=== PATIENT | male | born 1960 | race Two or more races ===

== ENCOUNTER → 2023-12-30 | Outpatient (CLI) | payer OTHER ==
[2023-12-31 08:15] LABS: RUBELLA AB IGG-REFLAB 3.93 index (Immune >0.99); RUBEOLA (MEASLES) IGG >300.0 AU/mL (Immune >16.4); VARICELLA ZOSTER IGG AB TITER 1360 index (Immune >165)
== END | disposition home or self-care (01) ==
LOC: LABMN 15:27
PROVIDERS: ATTEND Internal Medicine
DX: Z00.00 Encounter for general adult medical examination without abnormal findings (principal)
CPT/HCPCS: 86706; 86735; 86762; 86765; 86787

== ENCOUNTER → 2024-03-29 | Outpatient (CLI) | payer OTHER ==
[2024-03-29 07:37] LABS: EOSINOPHILS % (AUTO) 14.3 % (1.0-6.0); HEMATOCRIT 44.4 % (41-53); HEMOGLOBIN 14.9 g/dL (13.5-17.5); LYMPHOCYTES # (AUTO) 1.8 K/uL (1.0-4.8); LYMPHOCYTES % (AUTO) 28.3 % (22.0-44.0); MEAN CORPUSCULAR HEMOGLOBIN 32.3 pg (26.0-34.0); MEAN CORPUSCULAR HGB CONC 33.6 G/dL (31.0-37.0); MEAN CORPUSCULAR VOLUME 96 fL (80-100); MONOCYTES # (AUTO) 0.5 K/uL (0.1-1.0); MONOCYTES % (AUTO) 7.6 % (2.0-9.0); NEUTROPHILS # (AUTO) 3.1 K/uL (1.8-7.7); NEUTROPHILS % (AUTO) 48.8 % (40.0-70.0); PLATELET COUNT (AUTO) 223 K/uL (150-450); RED BLOOD CELL COUNT(AUTO) 4.62 MIL/uL (4.50-5.90); RED CELL DISTRIBUTION WIDTH 12.7 % (11.5-14.5); WHITE BLOOD COUNT (AUTO) 6.4 K/uL (4.5-11.0)
[2024-03-29 07:47] LABS: HEMOGLOBIN A1C 5.9 % (3.8-5.6)
[2024-03-29 08:19] LABS: ALANINE AMINOTRANSFERASE 32 U/L (12-78); ALBUMIN 3.3 g/dL (3.4-5.0); ALKALINE PHOSPHATASE 111 U/L (46-116); ANION GAP 10 mmol/L (8-16); ASPARTATE AMINOTRANSFERASE 23 U/L (15-37); BILIRUBIN,TOTAL 0.3 mg/dL (0.1-1.0); CALCIUM, TOTAL 8.5 mg/dL (8.8-10.5); CARBON DIOXIDE 26 mmol/L (22-29); CHLORIDE 105 mmol/L (98-107); CHOL/HDL RATIO 3.5 (4.2-7.3); CHOLESTEROL 170 mg/dL (131-200); CREATININE 0.84 mg/dL (0.60-1.30); GLOMERULAR FILTR. RATE CALC > 60 mL/min (>60); GLUCOSE,RANDOM 111 mg/dL (70-110); HDL CHOLESTEROL 48 mg/dL (40-60); LDL CHOL (CALC.) 100 mg/dL (0-130); POTASSIUM 3.8 mmol/L (3.5-5.1); SODIUM SERUM 140 mmol/L (136-145); TOTAL PROTEIN, SERUM 7.8 g/dL (6.4-8.2); TRIGLYCERIDES 109 mg/dL (15-150); UREA NITROGEN, BLOOD 16 mg/dL (7-18)
[2024-03-29 09:12] LABS: THYROID STIMULATING HORMONE 2.96 uIU/mL (0.36-3.74)
[2024-03-29 09:20] LABS: PROSTATE SPECIFIC ANTIGEN 0.24 ng/mL (0.00-4.00)
[2024-03-29 09:57] LABS: VITAMIN D,TOTAL (25-0H) 44 ng/mL (30-100)
[2024-03-29 09:58] LABS: VITAMIN B12 LEVEL 970 pg/mL (211-911)
[2024-03-29 11:01] LABS: FOLATE SERUM > 24.0 ng/mL (5.4-)
== END | disposition home or self-care (01) ==
LOC: LABMN 07:13
PROVIDERS: ATTEND Legal Medicine
DX: Z00.00 Encounter for general adult medical examination without abnormal findings (principal)
CPT/HCPCS: 80053; 80061; 82306; 82607; 82746; 83036; 84153; 84443; 85025

== ENCOUNTER 2024-06-29 08:34 | Day surgery (SDC) | payer OTHER ==
[~2024-06-29] VITALS: Ht 170.2 cm; Wt 102.2 kg
[~2024-06-29 08:34] MED LIST: SODIUM CHLORIDE 0.9% 1,000 ML IV ONE; SODIUM CHLORIDE 0.9% 1,000 ML ONE
[2024-06-29] MEDS ORDERED: OXYGEN THERAPY IH SCH (09:45)
[2024-06-29] MEDS ORDERED: LIDOCAINE/PF 2% 5 ML SYRINGE IVP ONE (12:00)
[2024-06-29] MEDS ORDERED: GLYCOPYRROLATE 0.2 MG/ML VIAL IM ONE (12:00)
[2024-06-29] MEDS ORDERED: PROPOFOL 1% 20 ML VIAL IVP ONE (12:00)
== END 2024-06-29 10:50 | disposition home or self-care (01) ==
LOC: SURGERY 08:34
PROVIDERS: ATTEND Specialist
DX: Z12.11 Encounter for screening for malignant neoplasm of colon (principal); K57.30 Diverticulosis of large intestine without perforation or abscess without bleeding; I10 Essential (primary) hypertension; E66.8 Other obesity; Z68.35 Body mass index [BMI] 35.0-35.9, adult; Z79.899 Other long term (current) drug therapy
CPT/HCPCS: 45378; J2704; J3490 ×2; J7030

== ENCOUNTER 2024-07-18 11:53 | Day surgery (SDC) | payer OTHER ==
[~2024-07-18] VITALS: Ht 170.2 cm; Wt 100.0 kg
[~2024-07-18 11:53] MED LIST changes: +AZEL137S8 NASAL; +FLUT16H NASAL; +LOSA-382 PO; -SODIUM CHLORIDE 0.9% 1,000 ML IV ONE; -SODIUM CHLORIDE 0.9% 1,000 ML ONE
[2024-07-18] MEDS ORDERED: LIDOCAINE/PF 2% 5 ML VIAL IM ONE (11:54)
[2024-07-18] MEDS ORDERED: 0.9% SODIUM CHLORIDE 10 ML VIAL IVP ONE (11:54)
[2024-07-18] MEDS ORDERED: EPHEDrine SULFATE 50 MG/ML VIAL IM ONE (11:54)
[2024-07-18] MEDS ORDERED: ROCURONIUM BROMIDE 10 MG/ML 5 ML VIAL IVP ONE (11:54)
[2024-07-18] MEDS ORDERED: ACETAMINOPHEN/ISO-OSM 1000 MG/100 ML BOTTLE IV ONE (11:54)
[2024-07-18] MEDS ORDERED: KETOROLAC TROMETHAMINE 60 MG/2 ML VIAL IM ONE (11:54)
[2024-07-18] MEDS ORDERED: DEXAMETHASONE SOD PHOS 4 MG/ML VIAL IVP ONE (11:54)
[2024-07-18] MEDS ORDERED: SUGAMMADEX SODIUM 200 MG/2 ML VIAL IVP ONE (11:54)
[2024-07-18] MEDS ORDERED: PROPOFOL 1% 20 ML VIAL IVP ONE (11:54)
[2024-07-18] MEDS ORDERED: ONDANSETRON HCL 4 MG/2 ML VIAL IVP ONE (11:54)
[2024-07-18] MEDS ORDERED: CeFAZolin SODIUM 1 GM VIAL IVP ONE (11:54)
[2024-07-18] MEDS ORDERED: FentaNYL CITRATE PF 100 MCG/2 ML VIAL IVP ONE (12:00)
[2024-07-18] MEDS ORDERED: MIDAZOLAM HCL 2 MG/2 ML VIAL IVP ONE (12:00)
[2024-07-18] MEDS: CHLORHEXIDINE GLUCONATE 2% TOWELETTE [2'S/6'S] TP ONE (12:29)
[2024-07-18] MEDS: ETHYL ALCOHOL 62% ANTISEPTIC NASAL SANITIZER 0.6 ML AMPUL NASAL ONE (12:29)
[2024-07-18] MEDS: RINGERS SOLUTION,LACTATED 1,000 ML IV ONE (12:30)
[2024-07-18] MEDS: BUPIVACAINE HCL/PF 0.5% 30 ML VIAL ONE (14:26)
[2024-07-18] MEDS: LIDOCAINE 2%/EPI 1:200,000/PF 20 ML VIAL ONE (14:27)
[2024-07-18] MEDS ORDERED: HYDROmorphone HCL 2 MG/ML SYRINGE IVP PRN (14:30)
[2024-07-18] MEDS ORDERED: MEPERIDINE-PF 25 MG/ML VIAL IVP PRN (14:30)
[2024-07-18] MEDS ORDERED: FentaNYL CITRATE PF 100 MCG/2 ML VIAL IVP PRN (14:30)
[2024-07-18] MEDS ORDERED: IBUPROFEN 800 MG TABLET PO PRN (15:00)
[2024-07-18] MEDS ORDERED: ACETAMINOPHEN 500 MG TABLET PO PRN (15:00)
[2024-07-18] MEDS ORDERED: OXYGEN THERAPY IH SCH (20:00)
== END 2024-07-18 16:25 | disposition home or self-care (01) ==
LOC: SURGERY 11:53
PROVIDERS: ATTEND Surgery
DX: K43.6 Other and unspecified ventral hernia with obstruction, without gangrene (principal); I10 Essential (primary) hypertension; Z79.1 Long term (current) use of non-steroidal anti-inflammatories (NSAID)
CPT/HCPCS: 49592; 88302; J3490 ×5; J2704; J0690; J1100; J3010; J1885; J2250; J2405; J0131

== ENCOUNTER 2024-10-16 21:04 | Emergency (ER) | payer OTHER ==
[~2024-10-16] VITALS: Ht 170.2 cm; Wt 100.0 kg
[2024-10-16 22:01] VITALS: BP 152/76; PULSE 68; RESP 16; TEMP 98.4; O2SAT 98
[2024-10-17] MEDS: KETOROLAC TROMETHAMINE 30 MG/ML VIAL IM ONE (02:19)
[2024-10-17] MEDS: LIDOCAINE 5% TRANSDERMAL PATCH TD ONE (02:19)
[2024-10-17] MEDS: TraMADol HCL 50 MG TABLET PO ONE (02:19)
[2024-10-17] MEDS ORDERED: CYCL-448 PO (03:21)
== END 2024-10-17 04:09 | disposition home or self-care (01) ==
LOC: EMS 21:04
DX: M54.50 Low back pain, unspecified (principal); M79.18 Myalgia, other site; I10 Essential (primary) hypertension
CPT/HCPCS: 99283; 72100; 96372; J1885

== ENCOUNTER 2025-07-11 11:06 | Emergency (ER) | payer OTHER ==
[~2025-07-11] VITALS: Ht 170.2 cm; Wt 99.5 kg
[~2025-07-11 11:06] MED LIST changes: +CYCL-448 PO
[2025-07-11 11:09] VITALS: TEMP 97.9
[2025-07-11] MEDS ORDERED: FLUT16SP NASAL (12:51)
[2025-07-11] MEDS: IBUPROFEN 600 MG TABLET PO ONE (12:54)
[2025-07-11] MEDS: PERTUSS(ACELL),DIPH,TET/PF 0.5 ML SYRINGE [ADULT] IM. ONE (12:58)
[2025-07-11 14:07] VITALS: BP 121/63; PULSE 71; RESP 18; O2SAT 96
== END 2025-07-11 14:34 | disposition home or self-care (01) ==
LOC: EMS 11:08
DX: S01.111A Laceration without foreign body of right eyelid and periocular area, initial encounter (principal); I10 Essential (primary) hypertension; Z79.899 Other long term (current) drug therapy; W22.8XXA Striking against or struck by other objects, initial encounter; Y93.89 Activity, other specified; Y92.89 Other specified places as the place of occurrence of the external cause; Y99.8 Other external cause status
CPT/HCPCS: 12011; 90471; 90715; 99283